=== PATIENT | male | born 1975 | race Caucasian/White ===

== ENCOUNTER 2019-07-09 16:34 | Emergency (ER) | payer SELFPAY ==
[2019-07-09] MEDS ORDERED: Aspirin 81 MG Tab.Chew PO ONE (16:51)
[2019-07-09] MEDS ORDERED: Sodium Chloride 0.9% 2.5 ML Syringe FLUSH PRN (16:51)
[2019-07-09] MEDS ORDERED: Sodium Chloride 0.9% 10 ML Syringe FLUSH PRN (16:51)
[2019-07-09 17:22] LABS: BLOOD UREA NITROGEN,BUN 11 mg/dL (7.0-18.0); CARBON DIOXIDE,CO2 26.4 mmol/L (21.0-32.0); CHLORIDE,CL 102 mmol/L (98-107); GLUCOSE RANDOM 89 mg/dL (74-106); POTASSIUM,K 3.9 mmol/L (3.5-5.1); SODIUM,NA 139 mmol/L (136-148)
--- NOTE | 2019-07-09 18:03 | EDM.PDOC ---
ED HPI GENERAL MEDICAL PROBLEM - General Chief Complaint: Chest Pain Stated Complaint: CHEST PAIN Time Seen by Provider: 07/09/19 16:37 Source of Information: Reports: Family History Limitations: Reports: No Limitations - History of Present Illness INITIAL COMMENTS - FREE TEXT/NARRATIVE: 43-year-old male past medical history of acid reflux, symptoms about 2-3 times a week for several years presenting with reflux type symptoms and chest burning but this time some left arm tingling. Left arm tingling was mild. There is no weakness associated with it. Then he ate about a half an hour later and began to have his typical chest burning. This lasted about 15 or 20 minutes and then dissipated. On arrival to the emergency department he has no arm tingling and no chest burning. Patient denies any personal history of heart disease. No recent trips or travels. Patient does not smoke. Patient does not have high blood pressure. Patient did get his triglycerides checked recently which were high. He was placed on a statin medication which he took for 2 weeks and stopped taking because he said it made him feel tired. Patient was seen for the same symptoms roughly 1 month ago, and underwent a normal work-up at that time. Patient denies : General: No fevers or chills. No malaise or fatigue. No recent change in weight. No thirst. Heent: No change in vision, no earache, sore throat or sinus congestion. Neck: No pain or stiffness. Cardiovascular: No chest pressure. No palpitations. Pulmonary: No shortness of breath, cough or wheeze. Gastrointestinal: No abdominal pain, nausea, vomiting or diarrhea, melena or bright red blood per rectum. Genitourinary: No urinary frequency, urgency, hesitancy or dysuria. Muskuloskeletal: No joint or muscle pain, no back pain, no recent trauma. Dermatologic: No rash, no itching, no lesions. Neuro: No headache, seizures, numbness, tingling or weakness. Psych: No depressive symptoms. Onset: Today chest Pain Score (Numeric/FACES): 5 - Related Data Allergies Allergy/AdvReac Type Severity Reaction Status Date / Time No Known Allergies Allergy Verified 07/09/19 16:51 Home Meds: Home Meds . [No Known Home Meds] 07/09/19 [History] Past Medical History HEENT History: Reports: None Cardiovascular History: Reports: None Respiratory History: Reports: None Gastrointestinal History: Reports: None Genitourinary History: Reports: None Musculoskeletal History: Reports: None Neurological History: Reports: None Psychiatric History: Reports: None Endocrine/Metabolic History: Reports: None Hematologic History: Reports: None Immunologic History: Reports: None Oncologic (Cancer) History: Reports: None Dermatologic History: Reports: None - Infectious Disease History Infectious Disease History: Reports: Chicken Pox - Past Surgical History Head Surgeries/Procedures: Reports: None HEENT Surgical History: Reports: None Cardiovascular Surgical History: Reports: None Respiratory Surgical History: Reports: None GI Surgical History: Reports: None Male Surgical History: Reports: None Endocrine Surgical History: Reports: None Neurological Surgical History: Reports: None Musculoskeletal Surgical History: Reports: None Oncologic Surgical History: Reports: None Dermatological Surgical History: Reports: None Social & Family History - Family History Family Medical History: Noncontributory - Tobacco Use Smoking Status *Q: Never Smoker Second Hand Smoke Exposure: No - Caffeine Use Caffeine Use: Reports: Coffee - Recreational Drug Use Recreational Drug Use: No ED ROS GENERAL - Review of Systems Review Of Systems: Comprehensive ROS is negative, except as noted in HPI. ED EXAM, GENERAL - Physical Exam Exam: See Below Free Text/Narrative:: General: No acute distress. Comfortable. Heent: Examination revealed no pallor, no icterus, no lymphadenopathy. The patient has normal posterior pharynx, moist mucous membranes. Neck: Supple. No JVD. No rigidity. Heart: Normal rate. Reg rhythm. No murmurs appreciated. Lungs: Bilaterally clear to auscultation. No focal findings. Abdomen: Obese. Nontender, non-distended, soft, no CVA tenderness. Neuro: Pt is moving all four extremities. EOMI. PERRL. Normal speech. Skin: Exposed areas appeared normally perfused, warm, normal color with no meaningful rashes or lesions. Extremities: Peripheral examination revealed no pedal edema. Peripheral pulses were 2+. EKG INTERPRETATION EKG Date: 07/09/19 EKG Interpretation Comments: EKG @ 4:42 PM. Sinus rhythm at 75 bpm. Normal axis. Normal [place] interval. Normal QRS interval. No obvious ischemia. EKG is essentially unchanged from the EKG of April 2019. Course - Vital Signs Text/Narrative:: Initial Clinical Impression (after seeing pt and examination): Atypical chest pain and history of refleux with similar sensations. Medical Decision Making: The quality of the pain, distribution and timing of the discomfort are not typical for ACS. --The presentation is not consistent with aortic dissection (no back pain, no new murmur, pr did not report a tearing sensation, there is no new neuro complaint, nor is there new meaningful abdominal pain). --The presentation is not c/w сергей/myocarditis (no typical EKG changes, new murmur, fevers, other stigmata). --Not consistent with pulmonary embolism (no tachycardia, unilateral leg swelling, hypoxia, or tachycardia). --Presentation not c/w esophageal bleed (no vomiting blood or report of BRBPR) --Not c/w pneumonia (pt reports no meaningful cough, no fever) --Not c/w pneumothorax (pt has symmteric breath sounds, vascular marking on CXR , and is not hypoxic nor short of breath). ACS Workup: Risk stratification using the HEART score. Heart score is < 3. = 0-3: 2.5% risk of adverse cardiac event. In the HEART Score, these patients were discharged. (0.99% retrospective) (1.7% prospective) 4-6: 20.3% risk of adverse cardiac event, suggesting admission to the hospital. 11.6% (16.6% prospective) ?7: 72.7% risk of adverse cardiac event, suggesting early invasive measures with these patients. 65.2% (50.1% prospective) Impression: Low risk chest pain with 3 or less HEART score, negative troponin. Very low risk for DC (1.7%) of poor outcome in 6 weeks. We will complete a 2-hour troponin on this patient. I discussed the other possible diagnosis with the patient we decided not to work-up further emergent pathologies because there is so highly unlikely in the work-up is not benign. Last Recorded V/S: Last Vital Signs Temp 36.4 C 07/09/19 16:38 Pulse 74 07/09/19 17:10 Resp 18 07/09/19 17:10 BP 150/112 H 07/09/19 17:10 Pulse Ox 97 07/09/19 17:10 - Orders/Labs/Meds Orders: Active Orders 24 hr Category Date Time Status Cardiac Monitoring [RC] . DIRECTED Care 07/09/19 16:51 Active EKG 12 Lead [EKG Documentation Completion] [RC] STAT Care 07/09/19 17:56 Active Sodium Chloride 0.9% [Saline Flush] Med 07/09/19 16:51 Active 10 ml FLUSH ASDIRECTED PRN Sodium Chloride 0.9% [Saline Flush] Med 07/09/19 16:51 Active 2.5 ml FLUSH ASDIRECTED PRN ED GI Medications Reflex [OM.PC] Stat Oth 07/09/19 16:53 Ordered Saline Lock Insert [OM.PC] Stat Oth 07/09/19 16:51 Ordered Medication Orders Sodium Chloride (Saline Flush) 10 ml FLUSH ASDIRECTED PRN PRN Reason: Keep Vein Open Last Admin: 07/09/19 17:09 Dose: 10 ml Sodium Chloride (Saline Flush) 2.5 ml FLUSH ASDIRECTED PRN PRN Reason: Keep Vein Open Last Admin: 07/09/19 17:09 Dose: 2.5 ml Labs: Laboratory Tests 07/09/19 07/09/19 07/09/19 Range/Units 16:40 16:40 18:47 WBC 5.17 (4.0-11.0) K/uL RBC 5.17 (4.50-5.90) M/uL Hgb 15.8 (13.0-17.0) g/dL Hct 45.6 (38.0-50.0) % MCV 88.2 (80.0-98.0) fL MCH 30.6 (27.0-32.0) pg MCHC 34.6 (31.0-37.0) g/dL RDW Std Deviation 41.8 (28.0-62.0) fl RDW Coeff of Lisa 13 (11.0-15.0) % Plt Count 221 (150-400) K/uL MPV 10.60 (7.40-12.00) fL Neut % (Auto) 56.4 (48.0-80.0) % Lymph % (Auto) 36.4 (16.0-40.0) % [place] % (Auto) 5.8 (0.0-15.0) % Eos % (Auto) 1.0 (0.0-7.0) % Baso % (Auto) 0.4 (0.0-1.5) % Neut # (Auto) 2.9 (1.4-5.7) K/uL Lymph # (Auto) 1.9 (0.6-2.4) K/uL [place] # (Auto) 0.3 (0.0-0.8) K/uL Eos # (Auto) 0.1 (0.0-0.7) K/uL Baso # (Auto) 0.0 (0.0-0.1) K/uL Nucleated RBC % 0.0 /100WBC Nucleated RBCs # 0 K/uL Sodium 139 (136-148) mmol/L Potassium 3.9 (3.5-5.1) mmol/L Chloride 102 (98-107) mmol/L Carbon Dioxide 26.4 (21.0-32.0) mmol/L BUN 11 (7.0-18.0) mg/dL Creatinine 1.1 (0.8-1.3) mg/dL Est Cr Clr Drug Dosing 84.80 mL/min Estimated GFR (MDRD) > 60.0 ml/min Glucose 89 (74-106) mg/dL Calcium 9.3 (8.5-10.1) mg/dL Total Bilirubin 0.8 (0.2-1.0) mg/dL AST 41 H (15-37) IU/L ALT 75 H (14-63) IU/L Alkaline Phosphatase 57 (46-116) U/L Troponin I < 0.050 < 0.050 (0.000-0.056) ng/mL Total Protein 8.1 (6.4-8.2) g/dL Albumin 4.6 (3.4-5.0) g/dL Globulin 3.5 (2.6-4.0) g/dL Albumin/Globulin Ratio 1.3 (0.9-1.6) Meds: Medications Generic Name Dose Route Start Last Admin Trade Name Freq PRN Reason Stop Dose Admin Sodium Chloride 10 ml 07/09/19 16:51 07/09/19 17:09 Saline Flush FLUSH 10 ml ASDIRECTED PRN Administration Keep Vein Open Sodium Chloride 2.5 ml 07/09/19 16:51 07/09/19 17:09 Saline Flush FLUSH 2.5 ml ASDIRECTED PRN Administration Keep Vein Open Discontinued Medications Generic Name Dose Route Start Last Admin Trade Name Freq PRN Reason Stop Dose Admin Aspirin 324 mg 07/09/19 16:51 07/09/19 17:08 Aspirin PO 07/09/19 16:52 324 mg ONETIME ONE Administration Departure - Departure Time of Disposition: 19:30 Disposition: Home, Self-Care 01 Condition: Good Clinical Impression: Chest discomfort Instructions: Nonspecific Chest Pain, [id number] Referrals: PCP,None [Primary Care Provider] - Forms: ED Department Discharge Additional Instructions: You have had chest pain. There is no indication that you have had a heart attack. However you need to follow-up with her primary care physician. Follow- up with the same physician you saw previously. Below are the contact information for 2 different clinics. 1 of those you have already seen a provider. If the one provider is not available or is no longer available, please see the other clinic. Also, return to emergency immediately with any new or troubling symptoms. [facility] [address] [place] [address] [place] [address] The following information is given to patients seen in the emergency department who are being discharged to home. This information is to outline your options for follow-up care. We provide all patients seen in our emergency department with a follow-up referral. The need for follow-up, as well as the timing and circumstances, are variable depending upon the specifics of your emergency department visit. If you don't have a primary care physician on staff, we will provide you with a referral. We always advise you to contact your personal physician following an emergency department visit to inform them of the circumstance of the visit and for follow-up with them and/or the need for any referrals to a consulting specialist. The emergency department will also refer you to a specialist when appropriate. This referral assures that you have the opportunity for follow-up care with a specialist. All of these measure are taken in an effort to provide you with optimal care, which includes your follow-up. Under all circumstances we always encourage you to contact your private physician who remains a resource for coordinating your care. When calling for follow-up care, please make the office aware that this follow-up is from your recent emergency room visit. If for any reason you are refused follow-up, please contact the [facility] Emergency Department at and asked to speak to the emergency department charge nurse. Sepsis Event Note - Evaluation Sepsis Screening Result: No Definite Risk - Focused Exam Vital Signs: Vital Signs Temp Pulse Resp BP Pulse Ox 07/09/19 17:10 74 18 150/112 H 97 07/09/19 16:55 78 18 158/113 H 97 07/09/19 16:38 36.4 C 77 18 176/118 H 98 Date Exam was Performed: 07/09/19 Time Exam was Performed: 19:30 - My Orders Last 24 Hours: My Active Orders 07/09/19 16:51 Cardiac Monitoring [RC] . DIRECTED Sodium Chloride 0.9% [Saline Flush] 10 ml FLUSH ASDIRECTED PRN Sodium Chloride 0.9% [Saline Flush] 2.5 ml FLUSH ASDIRECTED PRN Saline Lock Insert [OM.PC] Stat 07/09/19 16:53 ED GI Medications Reflex [OM.PC] Stat 07/09/19 17:56 EKG 12 Lead [EKG Documentation Completion] [RC] STAT - Assessment/Plan Last 24 Hours: My Active Orders 07/09/19 16:51 Cardiac Monitoring [RC] . DIRECTED Sodium Chloride 0.9% [Saline Flush] 10 ml FLUSH ASDIRECTED PRN Sodium Chloride 0.9% [Saline Flush] 2.5 ml FLUSH ASDIRECTED PRN Saline Lock Insert [OM.PC] Stat 07/09/19 16:53 ED GI Medications Reflex [OM.PC] Stat 07/09/19 17:56 EKG 12 Lead [EKG Documentation Completion] [RC] STAT
== END 2019-07-09 19:52 | disposition home or self-care (01) ==
LOC: MW.ED 16:34
DX: R07.89 Other chest pain (principal)
CPT/HCPCS: 80053; 84484; 85025; 93005; 99285; A9270